=== PATIENT | female | born 1990 | race Caucasian/White ===

== ENCOUNTER 2016-09-07 02:37 | Emergency (ER) | payer OTHER ==
[2016-09-07 08:28] LABS: BASOPHIL% 0.3 % (0-2.5); DIFF IND NO; EOSINOPHIL# 0.1 X10e3 (0-0.7); EOSINOPHIL% 0.5 % (0.0-7.0); HEMATOCRIT 39.6 % (35.0-45.0); HEMOGLOBIN 13.1 gm/dL (12.0-16.0); LYMPHOCYTE# 3.2 X10e3 (1.0-3.5); LYMPHOCYTE% 29.2 % (17.0-45.0); MEAN CELL VOLUME 83.2 FL (83-96); MEAN CORPUSCULAR HEMOGLOBIN 27.5 PG (28-34); MEAN CORPUSCULAR HGB CONC 33.1 g/dL (30-36); MEAN PLATELET VOLUME 7.8 FL (6.5-11.5); MONOCYTE% 8.6 % (3.0-12.0); NEUTROPHIL# 6.8 X10e3 (1.5-7.1); NEUTROPHIL% 61.4 % (40-75); PLATELET COUNT 198 X10e3 (140-420); RED BLOOD COUNT 4.76 X10e (3.90-5.30); RED CELL DISTRIBUTION WIDTH 13.8 % (11.0-15.5); WHITE BLOOD COUNT 11.1 X10e3 (4.0-10.5)
[2016-09-07 09:27] LABS: CALCIUM SERUM 9.4 mg/dL (8.4-10.2); POTASSIUM 3.5 mmol/L (3.5-5.1)
[2016-09-07 09:30] LABS: BUN/CREATININE RATIO 24.28; CREATININE SERUM 0.7 mg/dL (0.6-1.4); GLOM FILT RATE Estimated 118.7 mL/min (>60)
== END 2016-09-07 09:40 | disposition home or self-care (01) ==
LOC: CED 02:37
PROVIDERS: Emergency Medicine
DX: L02.414 Cutaneous abscess of left upper limb (principal)
CPT/HCPCS: 80048; 85025; 87040; 87070; 87205; 90715; 96365; 99284

== ENCOUNTER 2016-12-21 01:34 | Observation (INO) | payer OTHER ==
[~2016-12-21] VITALS: Ht 157.5 cm; Wt 56.7 kg
--- NOTE | ~2016-12-21 | DS ---
Unit #: [id number] #: [id number] Patient: HEMANT HOLT [id number] [address] [place], [place] [address] [id number] I MR#: [id number] NAME: HEMANT HOLT ROOM: 333 Age: 26 Sex: F Admission Date: 12/21/2016 : 1990 Discharge Date: 12/22/2016 Attending Physician: Jennifer Pete M.D. Primary Care Physician: No Primary Care Physician DISCHARGE SUMMARY DISCHARGE DIAGNOSES 1. Supraventricular tachycardia secondary to drug abuse, resolved. 2. Urinary tract infection secondary to gram-negative bobby, likely Escherichia coli. 3. Drug abuse with history of opiate, heroin and methamphetamine abuse. 4. Lethargy, resolved. CONSULTS None. PROCEDURES None. HISTORY OF PRESENT ILLNESS History of present illness is as follows: Ms. Holt is a 26-year-old white female with known opiate, heroin and methamphetamine abuse who presented with SVT, was also found to have a urinary tract infection. HOSPITAL COURSE Hospital course is as follows: Patient's hospital course was uneventful. She was observed overnight due to presenting into the emergency department with SVT where she required adenosine. She had no further episodes of supraventricular tachycardia here. It was felt likely to be drug abuse induced. She did rule out for an MN with negative cardiac markers. She was lethargic initially, but this has improved. She was found to have a urinary tract infection where her urine culture was growing gram-negative rods. She has been treated with Rocephin here and will be discharged home with Bactrim, as I suspect likely her urinary tract infection is due to E-coli or some type of similar bacteria. She was also incidentally found to have a positive blood culture of 1 of 2 sets, which was eventually discovered to be a skin contaminate. Otherwise, I did discuss with her the need to stop using drugs, which she agreed. DISCHARGE MEDICATIONS Discharge medications, therefore, include Bactrim DS 1 p.o. b.i.d. x5 more days for a urinary tract infection. DISCHARGE INSTRUCTIONS Discharge instructions are that she will be discharged home today. She will follow up with her primary care physician in 2 weeks. Again, I counselled her in regard to cessation of using illicit drugs. DISCHARGE CONDITION Her discharge condition is stable. Unit #: [id number] #: [id number] Patient: HEMANT HOLT Dictated by... Janet Mccord/sheyla TD: 12/25/2016 14:31 JOB #: [id number] DISCHARGE SUMMARY Page 1 of 1 X Jennifer Pete X DISCHARGE SUMMARY
--- NOTE | ~2016-12-21 | EKG ---
PATIENT: HEMANT HARRY UNIT #: [id number] Ventricular Rate: 102 BPM Atrial Rate: 102 BPM P-R Interval: 170 ms QRS Duration: 86 ms Q-T Interval: 372 ms QTC Calculation(Bezet): 484 ms P [place]: 51 degrees Calculated R [place]: 54 degrees Calculated T [place]: 41 degrees Diagnosis Line: Sinus tachycardia Diagnosis Line: Otherwise normal ECG Diagnosis Line: When compared with ECG of 21-DEC-2016 01:57, Diagnosis Line: (unconfirmed) Diagnosis Line: Vent. rate has decreased BY 81 BPM Diagnosis Line: ST no longer depressed in Inferior leads Diagnosis Line: ST no longer depressed in Lateral leads Diagnosis Line: Confirmed by SUNIL SANCHEZ MD ([id number]) on Diagnosis Line: 12/22/2016 4:42:51 PM INTERPRETING MD: BRIANA
--- NOTE | ~2016-12-21 | CR72 ---
[facility]. [facility] A Service of [facility] RADIOLOGY TEXT RESULTS PATIENT: HEMANT HARRY LOCATION: [facility] 333-01 : [birth year] UNIT #: [id number] AGE: [address]: Jennifer Pete MD SEX: F ORDER DR: [id number] [facility] [address] [place], [place] [address] [id number] E MR#: [id number] Acc #: [id number] NAME: HEMANT HARRY : 1990 SEX: F STUDY DATE/TIME: 12/21/2016 3:43 UNIT: [facility] ROOM: STUDY DESCRIPTION: CR Chest Single View Portable Attending Physician: Alejandro Recio D.O. Ordering Physician: Nehemiah Zhang M.D. Primary Care Physician: Primary Care Physician No MEDICAL IMAGING REPORT This report is preliminary unless electronic signature is present EXAM Portable chest. HISTORY Shortness of air and weakness today. Drug overdose. FINDINGS A single AP portable view of the chest shows both lungs to be clear. The heart is normal in size. The mediastinal contour is normal. No significant bone abnormalities are seen. IMPRESSION Normal portable chest. Dictated by... Brett Marroquin M.D. THIS IS AN ELECTRONICALLY VERIFIED REPORT Brett Marroquin M.D. at 12/22/2016 4:11 AM ERA/gurjit TD: 12/21/2016 03:52 JOB #: [id number] MEDICAL IMAGING REPORT Page 1 of 1 COPY
--- NOTE | ~2016-12-21 | HP ---
Unit #: [id number] #: [id number] Patient: HEMANT HOTL [id number] [id number] [facility]. [place], [place] [address] [id number] I MR#: [id number] NAME: HEMANT HOLT ROOM: 333 Age: 26 Sex: F Admission Date: 12/21/2016 : 1990 Attending Physician: Jennifer Pete M.D. Primary Care Physician: No Primary Care Physician HISTORY AND PHYSICAL CHIEF COMPLAINT Lethargy. HISTORY OF PRESENT ILLNESS Ms. Holt is a 26-year-old white female with known opiate, heroin, and methamphetamine abuse who presented to the emergency department by EMS after she was found to be lethargic and then tachycardic. Patient is unable to provide any medical history. She does not remember the events that brought her to the emergency department. She states the last thing she does remember is that she was sitting in a car with her friend and then she awoke in the emergency department. She does admit that she was doing heroin and methamphetamine daily and used as most recent as last night. Again, she was brought in by EMS but has no recollection of the events that prompted her to come to the emergency department and does not remember the events within the emergency department. Currently, she is sleepy but does easily awaken. She denies any chest pain, shortness of breath. Denies any nausea, vomiting. She did tolerate her lunch. Her only complaint is of headache. She states that she denies any previous episodes of palpitations or fast heart rate. She does admit that she at one point did go through withdrawal when she was off heroin for about 30 days. PAST MEDICAL HISTORY Listed as none. FAMILY HISTORY None. ALLERGIES None. MEDICATIONS She is on no home medications. SOCIAL HISTORY She is a smoker, and she has been smoking a pack a day since she was 6 years old. She has some rare alcohol use and again she does use methamphetamines and heroin daily and most recent as yesterday. REVIEW OF SYSTEMS CONSTITUTIONAL: No fevers, though she does complain of a headache. No nausea, vomiting. HEENT: No blurry vision. No hearing difficulties, dysphagia, rhinorrhea. PULMONARY: No dyspnea, hemoptysis, or cough. Unit #: [id number] #: [id number] Patient: HEMANT HOLT CARDIOVASCULAR: No chest pain. No previous episodes that she is aware of any palpitations or tachycardia. GASTROINTESTINAL: No diarrhea, constipation, melena, hematochezia. Patient did state that she had been tested for hepatitis C when she was in the emergency department at [facility] back in April 2016 but never followed up the results. GENITOURINARY: She does admit to having some dysuria but no hematuria. MUSCULOSKELETAL: She normally ambulates without the need for a cane or walker. ENDOCRINE: No known history of diabetes, thyroid, or adrenal abnormalities. HEMATOLOGIC: No bleeding or bruising abnormalities. NEUROLOGIC: No one-sided weakness, numbness, or tingling. PHYSICAL EXAMINATION VITAL SIGNS: Her temperature is 98.8. Pulse has been running 100s to one teens. The highest was 192 when she arrived in the emergency department and then down to 144. Respiratory rate is currently 16. Her blood pressure has been 90s to 120s over 50s to 70s. She is 99% on room air. GENERAL APPEARANCE: She is a 26-year-old white female who is awake, alert in no acute distress. HEENT: Normocephalic and atraumatic. Equal ocular movements are intact. Pupils are equal, round, and reactive to light and accommodation. She has dry mucous membranes. NECK: Supple. No JVD, bruits, or cervical lymphadenopathy. CHEST: Clear to auscultation bilaterally with no wheezes, rhonchi, or crackles. CARDIOVASCULAR EXAM: S1, S2 is normal. She has a regular rate and rhythm. ABDOMEN: Soft. She was nontender for me, though of note to my PA student she was tender in her right upper quadrant. EXTREMITIES: Shows no cyanosis, clubbing, or edema. MUSCULOSKELETAL: She moves all four extremities without difficulty. NEUROLOGIC: She is oriented x3. Her sensory and motor appear to be intact. SKIN: She had some dry skin of her bilateral lower extremities. She also has multiple tattoos of her extremities and she had some multiple piercings of her face and her tongue. DIAGNOSTIC STUDIES LABORATORY: Her laboratory work included a sodium of 136, potassium 3.4, chloride 105, bicarbonate 22, BUN and creatinine of 14 and 0.9 with a glucose of 124. Calcium 8.4. Total protein 7, albumin 3.8, total bilirubin 0.6, AST 19, ALT 14, alkaline phosphatase 56. Lactic acid was 0.8. Acetaminophen level was less than 10. Salicylate level less than 4. Alcohol level was less than 5. Her beta hCG was negative. Troponin was less than 0.05. White count was 7.2, H and H 12.4 and 36.7 with a platelet count of 208,000. Negative differential. Urinalysis was positive for 2+ leukocyte esterase, 1+ protein, 1 urobilinogen, 50-100 white blood cells. Her tox screen was positive for opiates and amphetamines. IMAGING: Her chest x-ray was read as normal, no acute abnormalities. CARDIOVASCULAR: Her EKG showed a heart rate of 180s with a supraventricular tachycardia. IMPRESSION Unit #: [id number] #: [id number] Patient: HEMANT HOLT Ms. is a 26-year-old white female with history of opiate, heroin, and methamphetamine abuse who presents with supraventricular tachycardia, urinary tract infection, and lethargy. PLAN 1. Supraventricular tachycardia: She has already converted after she received two doses of adenosine in the emergency department. Therefore, will need to be observing her overnight on telemetry. Will check her cardiac markers. Will go ahead and hydrate her as she does appear clinically dehydrated. Will monitor her labs. Likely this is all exacerbated by her illicit drug use. 2. Urinary tract infection: Will go ahead and followup her urine cultures. She has been started on some IV antibiotics. She will also continue some IV fluids. 3. Lethargy: I suspect this could just be due to her drug use; however, will need to monitor for other causes. I did review her old record in [facility] while she was at [facility] in the emergency department in April of this year. She states she was tested for hepatitis C at that time but never followed up, though I could not locate the hepatitis C lab. Will go ahead and check an ammonia level just in case she does have acute hepatic encephalopathy, though at this point she is waking up more. She is more coherent and I have a low suspicion that she has acute hepatic encephalopathy. Therefore, will monitor her for now. Will place her on neuro checks. 4. Drug abuse: She last used last night. She states she has been through withdrawal before. Therefore, will start Ativan as needed in case she withdrawals while she is in observation. I will have social work to see. 5. Disposition: She will be discharged home tomorrow as long as she is more awake and she has no cardiac events on the monitor. Dictated by Janet Mccord TD: 12/21/2016 15:18 JOB #: [id number] HISTORY AND PHYSICAL Page 1 of 1 X Jennifer Pete X HISTORY AND PHYSICAL
--- NOTE | ~2016-12-21 | EKG ---
PATIENT: HEMANT HARRY UNIT #: [id number] Ventricular Rate: 183 BPM Atrial Rate: 47 BPM QRS Duration: 82 ms Q-T Interval: 250 ms QTC Calculation(Bezet): 436 ms Calculated R [place]: 48 degrees Calculated T [place]: 4 degrees Diagnosis Line: Supraventricular tachycardia Diagnosis Line: Nonspecific ST abnormality Diagnosis Line: Abnormal ECG Diagnosis Line: No previous ECGs available Diagnosis Line: Confirmed by SUNIL SANCHEZ MD ([id number]) on Diagnosis Line: 12/22/2016 4:34:07 PM INTERPRETING MD: BRIANA
[2016-12-21 02:43] LABS: BASOPHIL% 0.5 % (0-2.5); EOSINOPHIL# 0.1 X10e3 (0-0.7); HEMATOCRIT 36.7 % (35.0-45.0); HEMOGLOBIN 12.4 gm/dL (12.0-16.0); LYMPHOCYTE# 1.8 X10e3 (1.0-3.5); LYMPHOCYTE% 25.1 % (17.0-45.0); MEAN CELL VOLUME 84.3 FL (83-96); MEAN CORPUSCULAR HEMOGLOBIN 28.4 PG (28-34); MEAN CORPUSCULAR HGB CONC 33.7 g/dL (30-36); MEAN PLATELET VOLUME 7.8 FL (6.5-11.5); MONOCYTE# 0.5 X10e3 (0-1.0); MONOCYTE% 7.5 % (3.0-12.0); NEUTROPHIL# 4.7 X10e3 (1.5-7.1); NEUTROPHIL% 65.9 % (40-75); PLATELET COUNT 208 X10e3 (140-420); RED BLOOD COUNT 4.36 X10e (3.90-5.30); RED CELL DISTRIBUTION WIDTH 12.8 % (11.0-15.5); WHITE BLOOD COUNT 7.2 X10e3 (4.0-10.5)
[2016-12-21 02:46] LABS: DIFF IND NO
[2016-12-21 03:07] LABS: ALBUMIN SERUM 3.8 g/dL (3.5-5.0); ALKALINE PHOSPHATASE 56 U/L (32-92); ALT (SGPT) 14 U/L (10-40); AST (SGOT) 19 U/L (10-42); BILIRUBIN, DIRECT 0.1 mg/dL (0.0-0.2); BILIRUBIN,INDIRECT 0.5 mg/dL (0.0-0.9); BILIRUBIN,TOTAL 0.6 mg/dL (0.2-2.0); BLOOD UREA NITROGEN 14 mg/dL (9-23); BUN/CREATININE RATIO 15.55; CALCIUM SERUM 8.4 mg/dL (8.4-10.2); CARBON DIOXIDE 22 mmol/L (22-31); CHLORIDE 105 mmol/L (100-111); CREATININE SERUM 0.9 mg/dL (0.6-1.4); GLOM FILT RATE Estimated 87.1 mL/min (>60); GLUCOSE FASTING 124 mg/dL (70-110); POTASSIUM 3.4 mmol/L (3.5-5.1); SALICYLATE <4.0 mg/dL; SODIUM 136 mmol/L (135-145)
[2016-12-21 03:18] LABS: ACETAMINOPHEN <10 ug/mL; ALCOHOL BLOOD <5 mg/dL (0)
[2016-12-21 06:59] LABS: POC - CKMB 1.3 ng/mL (0.0-7.9); POC - TROPONIN <0.05 ng/mL (<=0.05)
[2016-12-21 08:03] LABS: URINE SOURCE CLEAN CATCH
[2016-12-21 08:07] LABS: URINE APPEARANCE CLOUDY; URINE BILIRUBIN NEG (NEG); URINE BLOOD NEG (NEG); URINE COLOR YELLOW; URINE GLUCOSE NEG (NEG); URINE KETONE TRACE (NEG); URINE LEUKOCYTE ESTERASE 2+ (NEG); URINE NITRATE NEG (NEG); URINE PROTEIN 1+ (NEG); URINE SPECIFIC GRAVITY 1.021 (1.003-1.035)
[2016-12-21 08:08] LABS: CULTURE INDICATED? YES; URBCS1 AUWI 0-2 /[HPF] (0-2); URINE BACTERIA AUWI 4+ (NEGATIVE); URINE SQUAMOUS EPITHELIAL CELL OCC /[HPF]; UWBCS1 AUWI 50-100 (0-5)
[2016-12-21 08:24] LABS: AMPHETAMINE POS (NEG); BARBITURATES NEG (NEG); BENZODIAZEPINES NEG (NEG); COCAINE NEG (NEG); MARIJUANA POS (NEG); OPIATES POS (NEG); TRICYCLIC ANTIDEPRESSANTS NEG (NEG); U METHADONE NEG (NEG)
[2016-12-21] MEDS ORDERED: NO MEDICATIONS (09:41)
[2016-12-21 16:27] LABS: %MB 2.7 % (0.0-4.0); MB 2.5 ng/ml
[2016-12-21 22:15] LABS: MB 2.2 ng/ml
[2016-12-22 05:42] LABS: HEMOGLOBIN 11.4 gm/dL (12.0-16.0); MEAN CELL VOLUME 85.1 FL (83-96); MEAN CORPUSCULAR HEMOGLOBIN 28.6 PG (28-34); MEAN CORPUSCULAR HGB CONC 33.6 g/dL (30-36); MEAN PLATELET VOLUME 7.8 FL (6.5-11.5); WHITE BLOOD COUNT 7.2 X10e3 (4.0-10.5)
[2016-12-22 06:24] LABS: CREATININE SERUM 0.5 mg/dL (0.6-1.4); GLOM FILT RATE Estimated 131.7 mL/min (>60); POTASSIUM 3.6 mmol/L (3.5-5.1)
[2016-12-22] MEDS ORDERED: BACTRIM DS TAB1 EACH PO (14:01)
== END 2016-12-22 16:46 | disposition home or self-care (01) ==
LOC: CED 01:34 → CEDOF 10:19 → C3A PCU 10:19 → CED 10:39 → CEDOF 10:39 → C3A PCU 11:23
PROVIDERS: Emergency Medicine; Internal Medicine
DX: I47.1 Supraventricular tachycardia (principal); N39.0 Urinary tract infection, site not specified; F11.10 Opioid abuse, uncomplicated; F15.10 Other stimulant abuse, uncomplicated; R53.83 Other fatigue; F17.210 Nicotine dependence, cigarettes, uncomplicated
CPT/HCPCS: 36415; 71010; 80048; 80076; 80307; 81003; 82140; 82550; 82553; 82947; 83605; 84484; 84703; 85025; 85027; 87040; 87086; 87088; 87186; 93005; 96361; 96365; 96374; 96375; 96376; 99291; G0378; G0480; J0153; J0696; J2060; J3370